=== PATIENT | male | born 1980 | race Caucasian/White ===

== ENCOUNTER 2018-12-03 09:40 | Outpatient (CLI) | payer BC ==
--- NOTE | 2018-12-03 10:11 | RAD ---
Right foot: 4 views INDICATIONS: Injury with pain. FINDINGS: Transverse fracture base of fifth metatarsal. No other osseous abnormality identified. IMPRESSION: Fracture base of fifth metatarsal
== END 2018-12-03 09:41 | disposition home or self-care (01) ==
LOC: SCSRAD 09:40
PROVIDERS: ATTEND Nurse Practitioner Family
DX: M79.671 Pain in right foot (principal); S92.351A Displaced fracture of fifth metatarsal bone, right foot, initial encounter for closed fracture

== ENCOUNTER 2019-01-14 07:14 | Day surgery (SDC) | payer BC ==
[2019-01-13 11:27] VITALS: BMI 23.1
[2019-01-14] MEDS ORDERED: Fentanyl 100 MCG/2 ML VIAL ONE ×2 (07:54→09:29)
[2019-01-14] MEDS ORDERED: Oxymetazoline HCl 0.05% ( 15 ML ) ONE (08:46)
--- NOTE | 2019-01-14 12:32 | OP ---
DATE OF PROCEDURE: 01/14/2019 PREOPERATIVE DIAGNOSES: Chronic tonsillitis and nasal obstruction. POSTOPERATIVE DIAGNOSES: Chronic tonsillitis and moderate septal deviation to the right and postnasal drainage. PROCEDURES PERFORMED: 1. Tonsillectomy over 12 years of age. 2. Diagnostic nasal endoscopy. DESCRIPTION OF PROCEDURE: After consent was obtained, the patient was identified, brought to the operating room, and placed on the operating table in the supine position. General endotracheal anesthesia and intravenous access was obtained and we proceeded with positioning the patient for oropharyngeal surgery. Oropharyngeal exposure was obtained with a Wayne-Nilesh mouth gag after a head drape was placed and secured with a towel clip. The Wayne-Nilesh mouth gag was then suspended from the Leal tray and palatal elevation was achieved with a red rubber catheter. The right tonsil was addressed first. We used a curved Allis to grasp the tonsil and retract it medially as an anterior pillar incision was made with a #12 blade. The retrotonsillar fascial plane was then established and blunt dissection was performed with the suction cautery. Blood vessels were anticipated, identified, and cauterized as they were encountered. Ultimately, dissection was carried to the posterior tonsillar pillar mucosa which was incised hemostatically, as well as the base of tongue connection. The tonsil was then passed off as a specimen and bleeding points within the tonsillar bed were cauterized under direct visualization. We subsequently turned our attention to the contralateral side, where using a similar technique, a near identical procedure was performed. Again, the tonsil was grasped and retracted medially with a curved Allis as an anterior pillar incision was made with a #12 blade. The retrotonsillar fascial plane was established and while the anterior pillar was retracted medially, the hemostatic blunt dissection of the tonsil with a suction cautery was performed with blood vessels anticipated, identified, and cauterized as they were encountered. Again, dissection continued to the base of tongue and posterior tonsillar pillar mucosa which was incised in a hemostatic fashion. The tonsillar beds were then carefully inspected and bleeding points were identified and cauterized with a suction cautery. After this portion of the procedure, hemostasis was completely obtained. The patient's oral cavity was copiously irrigated with iced saline and subsequently suctioned. We then used the red rubber catheter to suction the gastric contents and the patient was subsequently aroused, awakened, and extubated without difficulty and transported to the recovery room in stable condition. There were no complications. Following the tonsillectomy, we proceeded with rigid nasal endoscopy with using 0-degree sinus scope, we underwent systematic nasal evaluation. The patient was found to have a deviated septum to the right and thick postnasal drainage bilaterally and the nose was decongested and irrigated and no lesions were identified and no excess obvious accessory ostia were appreciated. There was no obvious infection either. The patient was awakened, extubated, taken to the recovery room in a stable condition prior to discharge home. Job ID: [id number]
[2019-01-14] MEDS ORDERED: Lidocaine 1% PF 5 ML VIAL ONE (15:23)
[2019-01-14] MEDS ORDERED: Ondansetron PF 4 MG/2 ML Vial ONE (15:23)
[2019-01-14] MEDS ORDERED: Succinylcholine Chloride 20 MG/ML 10 ml SYRINGE FS ONE (15:23)
[2019-01-14] MEDS ORDERED: Rocuronium Bromide 10 MG/ML (10ML VIAL) ONE (15:23)
[2019-01-14] MEDS ORDERED: PROPOFOL 200 MG/20 ML VIAL ONE (15:23)
[2019-01-14] MEDS ORDERED: Dexamethasone 20 MG/5 ML VIAL ONE (15:23)
== END 2019-01-14 11:10 | disposition home or self-care (01) ==
LOC: SDC 07:14
PROVIDERS: ATTEND Specialist
PROC: 0CTPXZZ Resection of Tonsils, External Approach (ICD-10-PCS; principal; 2019-01-14)
PROC: 09JY8ZZ Inspection of Sinus, Via Natural or Artificial Opening Endoscopic (ICD-10-PCS; principal; 2019-01-14)
DX: J35.01 Chronic tonsillitis (principal); J34.2 Deviated nasal septum; G43.909 Migraine, unspecified, not intractable, without status migrainosus
CPT/HCPCS: 88304; 93005; 93010; J0131; J3010